=== PATIENT | female | born 1975 | race Asian ===

== ENCOUNTER 2018-09-20 14:34 | Emergency (ER) | payer OTHER ==
[~2018-09-20] VITALS: Ht 149.9 cm; Wt 61.4 kg
[2018-09-20 17:15] LABS: BASOPHILS % (AUTO) 0.3 % (0.0-2.0); EOSINOPHILS % (AUTO) 0 % (1.0-6.0); HEMATOCRIT 29.6 % (36-46); HEMOGLOBIN 9.7 g/dL (12.0-16.0); LYMPHOCYTES # (AUTO) 0.4 K/uL (1.0-4.8); LYMPHOCYTES % (AUTO) 4.5 % (22.0-44.0); MEAN CORPUSCULAR HEMOGLOBIN 24.3 pg (26.0-34.0); MEAN CORPUSCULAR HGB CONC 32.8 G/dL (31.0-37.0); MEAN CORPUSCULAR VOLUME 74 fL (80-100); MONOCYTES # (AUTO) 0.7 K/uL (0.1-1.0); MONOCYTES % (AUTO) 8.5 % (2.0-9.0); NEUTROPHILS # (AUTO) 7.4 K/uL (1.8-7.7); PLATELET COUNT (AUTO) 260 K/uL (150-450); RED CELL DISTRIBUTION WIDTH 15.9 % (11.5-14.5)
[2018-09-20] MEDS: SODIUM CHLORIDE 0.9% 1,000 ML IV ONE (17:18)
[2018-09-20 17:19] LABS: NEUTROPHILS % (AUTO) 86.7 % (40.0-70.0)
[2018-09-20] MEDS: ACETAMINOPHEN 325 MG TABLET PO ONE (17:19)
[2018-09-20 17:28] LABS: ANION GAP 13 mmol/L (8-16); CALCIUM, TOTAL 8.8 mg/dL (8.8-10.5); CARBON DIOXIDE 20 mmol/L (22-29); CHLORIDE 101 mmol/L (98-107); CREATININE 0.63 mg/dL (0.60-1.30); GLOMERULAR FILTR. RATE CALC > 60 mL/min (>60); GLUCOSE,RANDOM 85 mg/dL (70-110); POTASSIUM 3.3 mmol/L (3.5-5.1); SODIUM SERUM 134 mmol/L (136-145); UREA NITROGEN, BLOOD 6 mg/dL (7-18)
[2018-09-20] MEDS ORDERED: IOVERSOL 350 MG/ML 100 ML VIAL ONE (18:36)
[2018-09-20 22:18] VITALS: BP 110/64
== END 2018-09-20 23:30 | disposition home or self-care (01) ==
LOC: EMS 14:36
DX: O99.011 Anemia complicating pregnancy, first trimester (principal); O26.891 Other specified pregnancy related conditions, first trimester; R55 Syncope and collapse; R42 Dizziness and giddiness; Z3A.08 8 weeks gestation of pregnancy
CPT/HCPCS: 36415; 71275; 80048; 81025; 82962; 85025; 85379; 93005; 96360; 99285; J7030; Q9967